=== PATIENT | female | born 1945 | race Caucasian/White ===

== ENCOUNTER → 2017-10-06 16:09 | Outpatient (CLI) | payer MEDICARE, OTHER, SELFPAY ==
--- NOTE | 2017-10-06 16:18 | CT_ITS ---
CT of the left wrist INDICATION: Trauma TECHNIQUE: CT of the left wrist was performed in the axial plane without contrast followed by sagittal and coronal reconstructions. Radiographic technique was optimized to limit patient radiation dose DLP was 665.09 FINDINGS There is acute impacted comminuted intra-articular fracture of the distal radius with overlapping and mild separation of fracture fragments. There is also a transversely oriented fracture through the ulnar styloid with mild separation of fracture fragments. IMPRESSION:: Acute fractures of the distal radius and ulna styloid. Electronically Signed: Parviz Cramer MD at 17:27 EDT , Service support , CT/Extremity Upper without Contra
--- NOTE | 2017-10-06 16:24 | CT_ITS ---
CT of the right wrist INDICATION: Trauma TECHNIQUE: CT of the right wrist was performed in the axial plane without contrast followed by sagittal and coronal reconstructions. Radiographic technique was optimized to limit patient radiation dose. DLP was 554.46 FINDINGS: There is acute impacted comminuted intra-articular fracture of the distal radius with mild overlapping and separation of the fracture fragments without significant angulation.. There is also a transversely oriented fracture through the ulnar styloid process with mild separation of fracture fragments. CT/Extremity Upper without Contra IMPRESSION: Acute fractures of the distal radius and ulna styloid process Electronically Signed: Parviz Cramer MD at 17:09 EDT , Service support ,
== END ==
PROVIDERS: Family Provider Internal Medicine; PCP Internal Medicine; Visit Provider Orthopaedic Surgery
DX: M25.532 Pain in left wrist (principal)
CPT/HCPCS: 73200

== ENCOUNTER 2017-12-21 12:30 | Outpatient (RCR) | payer MEDICARE, OTHER, SELFPAY ==
--- NOTE | 2017-11-19 14:04 | HP.OTEVAL_ITS ---
Patient's Visit Information GWENDOLYN MARQUES is a 71 year old F, referred to Occupational Therapy by JUANA AMBROSE, with a diagnosis of bilateral radial/ulnar fx with ORIF. Date of Evaluation: 11/03/17 Occupational Therapist: Shellie Sinclair, CRISTÓBALR/Jade, CHT - Subjective Subjective: Pt had a fall on October 01, 2017. She fx bilateral distal radius and ulnar. Pt underwent bilateral ORIF on October 07, 2017. Pt arrives to session with Dr. west to allow left UE okay for weightbearing 5 pounds of less- cockup brace only for comfort. Right UE full range of motion of wrist and finger STRICT nonweightbearing -cock up brace to be warn at all times except when performong ROM exercises - Pain right wrist 1 Pain Intensity Range: 2, 5 left wrist 1 Pain Intensity Range: 2, 5 - ROM Forearm: right sup 60 left unable Wrist: Right 25/35 left 0/10 ROM Comments: Right composite fist. Left 1.5 away from composite fist. - Strength Strength Comments: NT at this time - Sensation Sensation Comments: denies - Hand/Wrist Evaluation Total Score of Pain & Functional Sections: 83 - Goals Goal:: 6 weeks following release for strengthening pt will demo a functional day care assistant strength of 35# or greater to return pt to PLOF Goal:: pt will demo a increase in right wrsit ROM by 30 degrees or greater to return to PLOF with BADLS by d/c. pt will demo the ability to form a composite fist with left hand to use with BADLs and IADLS by D/C Goal:: pt will report pain no greater than 2/10 with use of BUE with BADLS and IADLS by D/C Goal:: pt will demo understanding of scar mtg by end of 1st session to decrease scar adhesions to tendon - Rehabilitation General Assessment: pt demo with limited right wrist functioal ROM -limited left digital ROM limiting pts functional performance of BADLs and IADLS. Dr. west to allow left UE okay for weightbearing 5 pounds of less- cock up brace only for comfort. Right UE full range of motion of wrist and finger STRICT nonweightbearing -cockup brace to be warn at all times except when performong ROM exercises. PT would benefit from skilled OT services 1-2x week for 8 weeks to return pt to PLOF Rehabilitation Potential: Good - Anticipated Interventions Anticipated Interventions: A/AAROM/PROM, Strengthening, Scar Care, Triggerpoint Release, Modalities, Orthoses, Fine Motor Coord/Miguel Angel - Visit Plan Frequency: 2-3x /Week Duration: 2 Months TEXT: Thank you for the opportunity to evaluate your patient. For Medicare and Medicare HMO plans, please review the plan of care and approve it. It will need to be FAXED BACK to us at [phone] for Medicare purposes. Please let me know if there are questions or concerns regarding this plan of care. Physician Signature: Date:
--- NOTE | 2017-12-21 12:58 | HP.OTDCSUM_ITS ---
HP - OT D/C Summary It has been my pleasure to treat GWENDOLYN MARQUES under orders from JUANA AMBROSE, for the diagnosis of bilateral radial/ulnar fx with ORIF for a total of 7 visit(s). Please see the following information for a summary of their discharge status. 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 right lateral pinch 3#. right tripod pinch 2#. right wrist ROM 55/30 - Goals Patient Goals: Regain Mobility, Regain Strength, Decrease Pain, Improve Fine Motor Skills, Use Hand/Wrist/Arm Normally Again Goal:: [address] campbell for strengthening pt will demo a functional customs broker strength of 35# or greater to return pt to PLOF Goal:: pt will demo a increase in right wrsit ROM by 30 degrees or greater to return to PLOF with BADLS by d/c. pt will demo the ability to form a composite fist with left hand to use with BADLs and IADLS by D/C Goal:: pt will report pain no greater than 2/10 with use of BUE with BADLS and IADLS by D/C Goal:: pt will demo understanding of scar mtg by end of 1st session to decrease scar adhesions to tendon - Plan Plan: D/C with HEP - D/C Information Discharge Comments: PT has been see for 7 OT visits following a right ORIF and left plate. pts right wrist has progressed well with her ROM and strength. Pt reports she is PREETI with use of bilateral hand/UE for BADLs and IADLS. pt states she is able to perform well with min. pain. pt is to cont with her PRE to increase her right functional strength. Pt is ready fr left plate to be removed and will have this done in Dec. pt agrees with HEP until she has plate removed out of left. Pt d/c at this time with HEP If there are questions or concerns regarding this patient's occupational therapy , please fell free to call me at [phone]. Thank you for the referral of this patient. Sincerely, Shellie Sinclair, OTR/L, CHT
== END 2017-12-21 19:00 | disposition home or self-care (01) ==
LOC: OT 12:30
PROVIDERS: Family Provider Internal Medicine; PCP Internal Medicine
DX: S52.501D Unspecified fracture of the lower end of right radius, subsequent encounter for closed fracture with routine healing (principal); S52.601D Unspecified fracture of lower end of right ulna, subsequent encounter for closed fracture with routine healing; S52.502D Unspecified fracture of the lower end of left radius, subsequent encounter for closed fracture with routine healing; S52.602D Unspecified fracture of lower end of left ulna, subsequent encounter for closed fracture with routine healing
CPT/HCPCS: 97110; 97140; 97166; 97168; 97530

== ENCOUNTER 2018-02-19 10:30 | Outpatient (RCR) | payer MEDICARE, OTHER, SELFPAY ==
--- NOTE | 2018-02-10 09:03 | HP.OTEVAL_ITS ---
Patient's Visit Information GWENDOLYN MARQUES is a 72 year old F, referred to Occupational Therapy by DAVID PAUL, with a diagnosis of L hand fx, removal of plate in L wrist/hand. Date of Evaluation: Occupational Therapist: Shellie Sinclair, CRISTÓBALR/Jade, CHT - Subjective Subjective: Pt. arrives after removal of plate in L UE wrist/hand area. Pt. had a fall on September and fx bilateral distal radius and ulna. Pt. underwent bilateral ORIF on October 07, 2017. Pt. L Plate was removed on 01/13/2018. Pt. reported that the removal of the plate was very painful d/t scar tissue forming around the plate. - Pain L wrist 3 Pain Intensity Range: 3 - ROM Wrist: 20/30 L, 20/30 R, hx of R wrist fx ROM Comments: RD 13 degrees L, 13 degrees. UD 15 degrees L, 20 degrees. patient demo ability to make a composite fist and oppose all fingers with thumb, pt. demo ability to supinate and pronate with full ROM - Strength Under Cutting Machine Operator: 7# L and 25# in R Lateral Pinch: 1# in L and 4# in R Tripod Pinch: 3# in R and 1# in L Strength Comments: no pain during the strength tests - Nine Hole Peg Right: 19 sec. Left: 23 sec. - In-Hand Manipulation Finger to Palm Translation: Normal - Left Palm to Finger Translation: Normal - Left Comments: no pain - DASH-Disabilities of Arm, Shoulder& Hand DASH Sum: 38 - Hand/Wrist Evaluation Total Score of Pain & Functional Sections: 3 - Goals Goal:: Patient will increase overall revenue settlements administrator strength by 10 lbs. in L UE hand by completing strengthening exercises and stretches in order to complete functional tasks. Goal:: Patient will increase ROM of flexion by 15 degrees by completing strengthening and stretching exercises in order to complete BADL's and IADL's. Goal:: Patient will report overall decrease in pain in L UE hand in order to complete BADL's and IADL's with greater I. Goal:: Patient will improve lateral and tripod grasps by 3 lbs. by comlething strengthening and stretching exercises in order to complete BADL's and IADL's. - Rehabilitation General Assessment: Patient presents with L hand fx, removal of plate in L wrist/hand causing patient to have decreased strength and functional ROM of L UE forearm/wrist area. PB was provided to patient today to warm up mm prior to completing ROM exercises with pt. to increase ROM. Patient would benefit from OT services 1 x/ week for 3 weeks. Patient will recieve OT interventions like strengthening, ROM, and MT. Rehabilitation Potential: Good - Anticipated Interventions Anticipated Interventions: A/AAROM/PROM, Strengthening, Triggerpoint Release, Modalities - Visit Plan Frequency: 1x/Week Duration: 3 Weeks TEXT: Thank you for the opportunity to evaluate your patient. For Medicare and Medicare HMO plans, please review the plan of care and approve it. It will need to be FAXED BACK to us at [phone] for Medicare purposes. Please let me know if there are questions or concerns regarding this plan of care. Physician Si gnature: Date:
--- NOTE | 2018-02-22 10:13 | HP.OTDCSUM ---
HP - OT D/C Summary It has been my pleasure to treat GWENDOLYN MARQUES under orders from DAVID PAUL, for the diagnosis of L hand fx, removal of plate in L wrist/hand for a total of 2 visit(s). Please see the following information for a summary of their discharge status. - Objective Objective/Function: maintenance supervisor mechanical strength L 15 # and R 25 #. lateral pinch R 8 # and 7 # on L. tripod on R 9# and 6# on L. pt. has demo improvement with ROM and strength and reports that she is HI with BADL's and IADL's. Pt. reports no further concerns at this time. OT educated pt. about HEP to further increase strength and ROM to follow at home. OT has no concerns with pt. follow through at this time. - Goals Patient Goals: Regain Strength, Decrease Pain, Use Hand/Wrist/Arm Normally Again, Increase ROM, Be More Independent in ADLS Goal:: Patient will increase overall maintenance supervisor mechanical strength by 10 lbs. in L UE hand by completing strengthening exercises and stretches in order to complete functional tasks. Goal:: Patient will increase ROM of flexion by 15 degrees by completing strengthening and stretching exercises in order to complete BADL's and IADL's. Goal:: Patient will report overall decrease in pain in L UE hand in order to complete BADL's and IADL's with greater I. Goal:: Patient will improve lateral and tripod grasps by 3 lbs. by comlething strengthening and stretching exercises in order to complete BADL's and IADL's. - Plan Plan: D/C pt with HEP - D/C Information Discharge Comments: Pt was seen following plate removal of left wrist- pt was given HEP of ROM - today she returns with increased ROM- but states she is as ind. as she can be with her BADLS and IADLS. Pt feels she can cont. with her HEP and is ready for D/C. Therapist reviewed pts HEP and pt demo good understanding. At this time pt D/C with HEP- pt to call therapist with any questions or concerns. If there are questions or concerns regarding this patient's occupational therapy, please fell free to call me at [phone]. Thank you for the referral of this patient. Sincerely, Shellie Sinclair, OTR/L, CHT
--- NOTE | 2018-02-22 10:17 | HP.OTDCSUM_ITS ---
HP - OT D/C Summary It has been my pleasure to treat GWENDOLYN MARQUES under orders from DAVID PAUL, for the diagnosis of L hand fx, removal of plate in L wrist/hand for a total of 2 visit(s). Please see the following information for a summary of their discharge status. 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 lateral pinch R 8 # and 7 # on L. tripod on R 9# and 6# on L. pt. has demo improvement with ROM and strength and reports that she is TN with BADL's and IADL's. Pt. reports no further concerns at this time. OT educated pt. about HEP to further increase strength and ROM to follow at home. OT has no concerns with pt. follow through at this time. - Goals Patient Goals: Regain Strength, Decrease Pain, Use Hand/Wrist/Arm Normally Again, Increase ROM, Be More Independent in ADLS Goal:: Patient will increase overall aircraft power plant assembler strength by 10 lbs. in L UE hand by completing strengthening exercises and stretches in order to complete functional tasks. Goal:: Patient will increase ROM of flexion by 15 degrees by completing strengthening and stretching exercises in order to complete BADL's and IADL's. Goal:: Patient will report overall decrease in pain in L UE hand in order to complete BADL's and IADL's with greater I. Goal:: Patient will improve lateral and tripod grasps by 3 lbs. by comlething strengthening and stretching exercises in order to complete BADL's and IADL's. - Plan Plan: D/C pt with HEP - D/C Information Discharge Comments: Pt was seen following plate removal of left wrist- pt was given HEP of ROM - today she returns with increased ROM- but states she is as ind. as she can be with her BADLS and IADLS. Pt feels she can cont. with her HEP and is ready for D/C. Therapist reviewed pts HEP and pt demo good understanding. At this time pt D/C with HEP- pt to call therapist with any questions or concerns. If there are questions or concerns regarding this patient's occupational therapy, please fell free to call me at [phone]. Thank you for the referral of this patient. Sincerely, Shellie Sinclair, OTR/L, CHT
== END 2018-02-19 19:00 | disposition home or self-care (01) ==
LOC: OT 10:30
PROVIDERS: Family Provider Internal Medicine; PCP Internal Medicine
DX: S52.502D Unspecified fracture of the lower end of left radius, subsequent encounter for closed fracture with routine healing (principal); S52.602D Unspecified fracture of lower end of left ulna, subsequent encounter for closed fracture with routine healing; Z96.9 Presence of functional implant, unspecified; Z98.890 Other specified postprocedural states
CPT/HCPCS: 97110; 97140; 97166

== ENCOUNTER 2018-12-08 10:38 | Observation (INO) | payer MEDICARE, OTHER, SELFPAY ==
[2018-12-08] VITALS (14 sets, daily range): BP systolic 133–199; BP diastolic 58–100; PULSE 55–91; RESP 12–20; TEMP 36.4–37.1; O2SAT 96–99; BMI 26.2
--- NOTE | 2018-12-08 10:49 | CT_ITS ---
STUDY: CT BRAIN WITHOUT CONTRAST REASON FOR EXAM: Female, 72 years old. Left-sided facial numbness and headaches. RADIATION DOSAGE (If Supplied By Facility): CTDIvol = ( 44.99 ) mGy, DLP = ( 745.49 ) mGycm TECHNIQUE: Transaxial CT imaging of the brain was performed without administration of intravenous contrast material. Individualized dose optimization techniques were used for this CT. COMPARISON: Comparison is made with prior study dated January 08, 2012. FINDINGS: Normal soft tissue structures. Normal calvarium. There is mild cerebral atrophy with widening of the extra-axial spaces and ventricular dilatation. Normal white matter tracts of the cerebral hemispheres. There are small punctate calcifications of the basal ganglia which are seen in the aging brain as a normal variant. Normal brainstem. Normal cerebellum. There is no intracranial hemorrhage. There are no findings of an acute ischemic infarction. Normal visualized paranasal sinuses. CT/Brain/Head without Contrast IMPRESSION: Chronic involutional changes of the brain. Electronically Signed: Ruddy Gaspar, at 13:01 EDT , Service support ,
--- NOTE | 2018-12-08 10:49 | EKG12_ITS ---
Test Reason : Blood Pressure : / mmHG Vent. Rate : 069 BPM Atrial Rate : 069 BPM P-R Int : 144 ms QRS Dur : 140 ms QT Int : 438 ms P-R-T Axes : 051 022 008 degrees QTc Int : 469 ms Normal sinus rhythm Right bundle branch block Abnormal ECG Confirmed by MEGGAN BURLESON ([id number]), index editor JENNIFER POLK ([id number]) on 12/09/2018 2:22:18 PM Referred By: NITESH/JOSIANE Confirmed By:MEGGAN BURLESON
[2018-12-08] MEDS: 0.9% Normal Saline 1,000 ML 999 ML IV (11:06)
[2018-12-08 11:09] LABS: Absolute Lymphocyte Count 1.39 X10^3/uL (0.83-4.51); Absolute Neutrophil Count 2.8 X10^3/uL (2.0-7.7); Basophil# 0.03 X10^3/uL; Basophil% 0.6 % (0-1); Eosinophil# 0.16 X10^3/uL; Eosinophils% 3.2 % (0-5); Hematocrit 39.6 % (37-47); Hemoglobin 13.3 g/dL (12.0-15.0); Lymphocyte # 1.39 X10^3/ul (4.0); Lymphocyte % 27.7 % (19-41); Mean Corp Hgb Conc 33.6 g/dL (32-36); Mean Corpuscular Hgb 29.1 pg (27.0-32.0); Mean Corpuscular Volume 86.7 fL (81-99); Mean Platelet Vol. 10.2 fl (6.2-12.0); Monocyte# 0.57 X10^3/uL; Monocyte% 11.4 % (0-10); NRBC Flagged by Analyzer 0 % (0-5); Neutrophil % 55.7 % (47-70); Platelet Count 235 K/mm3 (150-450); RBC Distribution Width CV 12.6 % (11.6-14.6); RBC Distribution Width SD 39.5 fl (35.1-43.9); Red Blood Count 4.57 M/mm3 (4.2-5.4)
[2018-12-08 11:16] LABS: Prothrombin Time (Protime)PT. 12.8 SECONDS (11.7-14.9)
[2018-12-08 11:26] LABS: BUN 18 mg/dL (7-18); BUN/Creat Ratio 20.2 RATIO (10-20); Creatinine, Serum 0.89 mg/dL (0.55-1.02); EST Glomerular Filtration Rate 66 mL/min (>60); Est Glom Filt Rate - Afr Amer 80 mL/min (>60); Estimated Creatinine Clearance 44.38 ml/min; Glucose 130 mg/dL (74-106)
[2018-12-08 11:27] LABS: Anion Gap 4 (5-15); Calcium,Total 9.1 mg/dL (8.5-10.1); Chloride 110 mmol/L (98-107); Potassium 3.9 mmol/L (3.5-5.1); Sodium Level 142 mmol/L (136-145)
--- NOTE | 2018-12-08 11:35 | RAD_ITS ---
STUDY: X-RAY CHEST REASON FOR EXAM: Female, 72 years old. Headache. Stroke like symptoms. TECHNIQUE: Single AP portable view of the chest. COMPARISON: None. FINDINGS: EKG electrodes are seen. The lungs are clear and expanded. There is no demonstrated pleural abnormality. Normal size heart. Normal mediastinum and dariana. Normal visualized pulmonary arteries. There is atherosclerotic tortuosity of the aortic arch and descending thoracic aorta. Normal visualized thoracic spine. Normal visualized ribs, clavicles, and shoulders. There is no demonstrated abnormality of the visualized soft tissue structures of the upper abdomen. RAD/Chest 1 View IMPRESSION: No acute abnormality is seen. Electronically Signed: Ruddy Gaspar, at 12:13 EDT , Service support ,
--- NOTE | 2018-12-08 13:50 | ED.VISSUMM ---
- ER Visit Summary Date of Service: 12/08/18 Chief Complaint: Cheek tingling History of Present Illness: The patient is a 72 F with left cheek tingling. Symptoms started this morning when she woke up around 8 AM. She never had this before. She also said that both of her eyes were blurry and all perkins. She denies visual cuts. She has been dealing with a headache over the past week. It has been frontal, but was worse today. She also reports that her blood sugars have been high recently, as high as 250. She is not not diabetic, but has a family history of diabetes. History of hyperlipidemia. Physical Examination: Afebrile and vital signs unremarkable except for hypertension. HEENT exam unremarkable. Neck nontender with good range of motion. Heart regular. Lungs clear. Skin appears normal. Cranial nerves grossly intact and normal strength. She does report decreased sensation to her left cheek region. Cerebellar testing normal. NIH stroke scale is 1. Test Results: EKG showed sinus rhythm at a rate of 69 with a right bundle branch block pattern. CBC unremarkable. BMP showed a glucose of 130. Coags and troponin normal. Chest x-ray and CT brain showed chronic changes. Emergency Department Course and Treatment: Patient presents with headache and neurologic symptoms. I was initially considered that she may be hyperglycemic. She was hypertensive. She was treated with labetalol. Repeat blood pressure was 159/70. She was treated with IV fluids. Her glucose was only 130. Her headache improved. Vision improved. She continued to have left cheek tingling. Given her focal neurologic symptoms, age, risk factors, hospitalist was contacted for admission for further evaluation. Treatment Plan: As above Disposition: Admission Impression: 1. Left facial paresthesias 2. Headache 3. Hypertension 4. Hyperglycemia This note was generated with [employer] software. It may contain incorrect words, spelling, and punctuation that were not noted in review of the chart prior to signing ED Disposition - Plan for ED Patient: Referrals: Maggie Renee MD [Primary Care Provider] -
--- NOTE | 2018-12-08 14:04 | HP.PCM_ITS ---
Problem List (1) CVA (cerebral vascular accident) Status: Acute (2) Migraine Status: Chronic (3) Gastroesophageal reflux disease Status: Chronic (4) Hypercholesterolemia Status: Chronic History of Present Illness Date of Admission: 12/08/18 The patient is a 72 year old F with pmhx migraine, GERD, Hiatal hernia, HLD, and osteopenia, who presents to the ER with c/o frontal headache and left facial tingling. This began this AM. She notes that she woke up with these symptoms. The headache has since resolved. It was across her forehead and severe. She also has tingling localized to the left cheek and chin. She feels that her vision is somewhat blurry in both eyes. She has no focal weakness, no slurred speech, no facial droop, no swallowing difficulty, and no peripheral numbness/tingling. She came to the ER and has a severely elevated BP with systolic in the 190s. She is concerned for stroke. She previously had an episode 2 years prior where she had slurred speech and aphasia along with headache and was told that it was a migraine, there is some concern as to whether this was a migraine or a stroke as she has never had a migraine before that or since. She also is worried she has diabetes. Last week she checked her blood sugar and it was in the 200s. Today it is 130 on BMP. [] Past Medical History Past Medical History (Chronic Problems): Chronic Problems Migraine (Chronic) Hypercholesterolemia (Chronic) Gastroesophageal reflux disease (Chronic) Allergies Latex, Natural Rubber Allergy (Verified 12/08/18 10:53) Hives Home Medications: Ambulatory Orders Medication Instructions Recorded Ascorbic Acid 500 mg PO DAILY 12/08/18 Calcium Carbonate [Calcium] 600 mg PO DAILY 12/08/18 Cholecalciferol (Vitamin D3) 1,000 unit PO DAILY 12/08/18 [Vitamin D3] Pantoprazole Sodium [Protonix] 40 mg PO DAILY 12/08/18 Pravastatin [Pravachol] 20 mg PO DAILY 12/08/18 Surgical History: - - BL wrist surgery Psychiatric History: No pertinent psych 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 Lives: Spouse/ Significant Other Smoking Status: Never smoker Tobacco Use: Non-smoker Alcohol: Rare Drugs: None - *Family History Sibling History Items: Diabetes Maternal History Items: Cancer - lung Paternal History Items: Heart Disease Review of Systems Constitutional: Denies: Chills, Fever, Weight Change HEENT: Denies: Head Aches, Sinus Congestion, Sinus Drainage Cardiovascular: Denies: Chest Pain, Palpitations Respiratory: Denies: Cough, Shortness of breath at rest, Sputum production Gastrointestinal: Denies: Abdominal Pain, Nausea, Vomiting Genitourinary: Denies: Dysuria Musculoskeletal: Denies: Joint Pain, Joint Tenderness Skin: Denies: Rash, Wounds Neurological: Reports: Headaches, Numbness, Tingling. Denies: Change in Speech, Slurred speech, Confusion, Difficulty swallowing, Focal weakness, Seizures Psychiatric: Denies: Anxiety, Depression, Homicidal Ideations, Suicidal Ideations Hematologic/ Lymphatic: Denies: Easy Bruising, Easy Bleeding VTE Information - Inpt Only VTE Present on Admission: No VTE Mechan Device Prophylaxis: None VTE Pharm Prophylaxis ordered?: Yes Patient Problems: Active and Suspected Problems CVA (cerebral vascular accident) (Acute) - Physical Exam General: Alert, Oriented x3, Cooperative HEENT: Atraumatic, PERRLA, EOMI, Normocephalic Neck: Supple, No JVD, Negative Carotid Bruits Lungs: Clear to auscultation, Normal air movement Cardiovascular: Regular rate, No murmurs Abdomen: Bowel Sounds Present, Soft, Non Tender Extremities: No edema, Capillary Refill Less than 3 Seconds Skin: No rashes, No breakdown Musculoskeletal: No Tenderness to Palpation of Joints or Extremities Neurological: Cranial nerves II-XII grossly intact, - - neg pronator drift, neg graphasthesia, sensation intact upper/lower ext, good strength = and BL upper and lower ext Psych/Mental Status: Normal Affect, Appropriate, Alert and oriented to time, place, person, mood and affect Vital Signs Temp Pulse Resp BP Pulse Ox 98.5 F 59 L 20 H 159/70 H 97 12/08/18 10:38 12/08/18 13:01 12/08/18 13:01 12/08/18 13:01 12/08/18 13:01 Oxygen Flow Rate (L/min) 2 Oxygen Delivery Method Room Air Weight: 139 lb Body Mass Index (BMI) 26.2 Laboratory Tests Past 24 Hrs 12/08/18 12/08/18 12/08/18 10:55 10:55 10:55 WBC 5.0 RBC 4.57 Hgb 13.3 Hct 39.6 MCV 86.7 MCH 29.1 MCHC 33.6 RDW Std Deviation 39.5 RDW Coeff of Jorge 12.6 Plt Count 235 MPV 10.2 Immature Gran % (Auto) 1.400 H Neut % (Auto) 55.7 Lymph % (Auto) 27.7 [place] % (Auto) 11.4 H Eos % (Auto) 3.2 Baso % (Auto) 0.6 Absolute Neuts (auto) 2.8 Absolute Lymphs (auto) 1.39 Nucleated RBC % 0 PT 12.8 INR 1.0 APTT 26.0 Sodium 142 Potassium 3.9 Chloride 110 H Carbon Dioxide 28.0 Anion Gap 4 L BUN 18 Creatinine 0.89 Estim Creat Clear Calc 44.38 Est GFR (MDRD) Af Amer 80 Est GFR (MDRD) Non-Af 66 BUN/Creatinine Ratio 20.2 H Glucose 130 H Calcium 9.1 Troponin I < 0.015 Assessment/Plan All Active Problems CVA (cerebral vascular accident) (Acute) 1. Left facial numbess and BL frontal ROSE - concern for CVA - CT brain negative. Woke up with symptoms, ROSE resolved, left facial numbness/tingling still there. left cheek and chin, spares forehead. Neuro exam benign. BP is severely elevated 190s. Also concerning is that the patient 2 years prior had expressive aphasia and slurred speech along with headache and was told she had a migraine despite n o prior hx or recurrent of any migraines. Obtain MRI brain MRA head and neck, echo, and consult neurology. Check TSH and B12. Maximize statin and start aspirin. PTOTST evals. Check A1C. 2. Hyperglycemia - checked at home and had glucose >200, no hx diabetes, strong family hx. Check A1C. SSI. 3. HTN - severely elevated - ROSE may also be related to this. Permissive htn however should decrease somewhat from 190's. 4. Hx GERD/Hiatal hernia - PPI 5. Osteopenia - on Ca/VitD. 6. HLD - on statin. DVT ppx: lovenox This patient was seen by Robi Silvestre PA-C under the supervision of Dr. Howard.
--- NOTE | 2018-12-08 14:31 | CT_ITS ---
STUDY: CTA HEAD AND NECK WITH CONTRAST REASON FOR EXAM: Female, 72 years old. Headache, blurry vision RADIATION DOSAGE (If Supplied By Facility): CTDIvol = ( 19.32 ) mGy, DLP = ( 635.55 ) mGycm TECHNIQUE: CT angiography was performed with a multi-detector CT scanner. Data acquisition was obtained from the skull base through the vertex following intravenous administration of 100 IV Isovue 370. MIP images were reconstructed from the axial data set. Post-processing of the angiographic images was performed, with multiplanar reformation and 3D reconstruction. Individualized dose optimization techniques were used for this CT. COMPARISON: CT earlier today FINDINGS: Normal bilateral petrous carotid arteries. Normal right cavernous carotid artery with a normal supraclinoid bifurcation. Normal left cavernous carotid artery with a normal supraclinoid bifurcation. There is hypoplastic development of the right A1 segment of the anterior cerebral arteries with an atretic but intact artery. Normal left A1 segments of the anterior cerebral artery. Normal intact anterior communicating artery (ACOM). Normal bilateral A2 segments of the anterior cerebral arteries. Normal right M1 and M2 segments of the middle cerebral arteries, with a normal M1 bifurcation. Normal left M1 and M2 segments of the middle cerebral arteries, with a normal M1 bifurcation. Normal right posterior communicating artery (PCOM). There is non-visualization of the left posterior communicating artery (PCOM). Focal calcified plaque within the distal right vertebral artery producing a mild (50%) stenosis. Oormal basilar artery with a normal basilar bifurcation. The visualized bilateral superior cerebellar (SCA) arteries are normal. Normal bilateral P1, P2 and visualized P3 segments of the posterior cerebral arteries. There is no demonstrated aneurysm of the [place]. There is no demonstrated abnormality of the visualized brain. AORTIC ARCH: There is a bovine origin of the great vessels arising from the aortic arch with a common origin of the brachiocephalic and left common carotid artery. Normal origin of the left subclavian artery. Normal origins of the brachiocephalic, left common carotid, and left subclavian arteries. RIGHT CAROTID ARTERIES: Normal right common carotid artery (CCA). There is mild atherosclerotic plaque formation with minimal narrowing of the right carotid bulb. There is mild atherosclerotic plaque formation of the origin of the right internal carotid artery with less than 50% cross sectional diameter stenosis. Normal visualized cervical portion of the right internal carotid artery. Normal origin of the right external carotid artery (ECA). LEFT CAROTID ARTERIES: Normal left common carotid artery (CCA). Normal left common carotid bulb. Normal origin of the left internal carotid (ICA) artery without a hemodynamically significant stenosis. Normal visualized cervical portion of the left internal carotid artery. Normal origin of the left external carotid artery (ECA). VERTEBRAL ARTERIES: Normal bilateral vertebral arteries. CT/CTA Head AND Neck W/ Contrast IMPRESSION: 1. Bovine arch. 2. Mild (20%) stenosis right carotid stenosis. 3. No left carotid stenosis. 4. Patent vertebral arteries bilaterally. Electronically Signed: Delta Sheffield MD at 17:02 EDT Tel , Service support ,
--- NOTE | 2018-12-08 14:31 | MRI_ITS ---
STUDY: MRI BRAIN WITHOUT CONTRAST REASON FOR EXAM: Female, 72 years old. CVA TECHNIQUE: Standardized multiplanar fat and water weighted pulse sequences were obtained. COMPARISON: CT of the brain on December 08, 2018 FINDINGS: Normal size of the ventricles and extra-axial spaces for the patient's age. Mild periventricular white matter ischemic changes without evidence for acute infarct. Normal bilateral basal ganglia. Normal thalami. There is no extra-axial fluid accumulation. Normal flow voids within the major intracranial circulation suggesting patency by spin echo criteria. Normal sella turcica, pituitary gland, infundibular stalk, optic chiasm and hypothalamus. Normal tectal plate and pineal gland. Normal midbrain, meenakshi and medulla. Normal cerebellum. Normal basal cisterns. Normal bilateral temporal bones. Normal bilateral internal auditory canals. Postsurgical changes of the orbits.. Normal visualized paranasal sinuses. Normal calvarium and skull base. Normal visualized soft tissue structures. Normal visualized upper cervical spine. MRI/Brain without Contrast IMPRESSION: Mild periventricular white matter ischemic change without evidence for acute infarct. Electronically Signed: Parviz Cramer MD at 19:47 EDT , Service support ,
--- NOTE | 2018-12-08 14:37 | ECHOCS_ITS ---
Reason For Study: TIA/CVA Procedure This was a 2D Doppler, Color Flow transthoracic echocardiogram. The study was technically difficult. Due to breast implants. Contrast injection was performed. Exam performed portable in patient room. Left Ventricle Normal size and thickness. The estimated ejection fraction is 60 %. No evidence for diastolic dysfunction. No regional wall motion abnormalities noted. Right Ventricle Normal RV size. Normal systolic function. Atria Normal left atrium. Normal right atrium. No doppler evidence for ASD. Mitral Valve There is no mitral valve stenosis. No mitral valve insufficiency. Tricuspid Valve There is no tricuspid stenosis. Trivial tricuspid valve insufficiency. Pulmonary artery systolic pressure is 30 mmHg. Aortic Valve Trisinus/trileaflet aortic valve. There is no aortic stenosis. No aortic valve insufficiency. Pulmonic Valve There is no pulmonic valvular stenosis. No pulmonic valve insufficiency. Great Vessels Normal aortic root. Pericardium/Pleural No pericardial effusion. Medication Diluted definity 4.0ml given slow IV push to enhance endocardial definition. MMode/2D Measurements & Calculations LVIDd: 4.6 cm IVSd: 0.82 cm Ao root diam: 2.9 cm LVIDs: 3.0 cm LVPWd: 0.90 cm RVDd: 2.7 cm FS: 34.7 % LAV(MOD-bp): 38.7 ml LA A4 area: 15.8 cm2 LA dimension(2D): 3.3 cm LAV(MOD-bp) Indexed: 23.9 ml/m2 LAV(MOD-sp2): 35.7 ml LAV(MOD-sp4): 42.3 ml Time Measurements MV dec time: 0.12 sec Doppler Measurements & Calculations MV E max pete: 53.5 cm/sec Lat Peak E' Pete: 8.8 cm/sec Med Peak E' Pete: 7.8 cm/sec MV A max pete: 84.0 cm/sec E/E' lat: 6.1 E/E' med: 6.8 MV E/A: 0.64 Ao V2 max: 113.8 cm/sec LV V1 max: 81.1 cm/sec PA V2 max: 102.8 cm/sec Ao max P.2 mmHg LV V1 max P.6 mmHg TR max pete: 256.6 cm/sec TR max P.4 mmHg Interpretation Summary The study was technically difficult. The estimated ejection fraction is 60 %. No evidence for diastolic dysfunction. Pulmonary artery systolic pressure is 30 mmHg. No doppler evidence for ASD. The study was technically difficult. Ordering Physician: Trang Howard Referring Physician: Maggie Renee Performed By: Claire Harris, [place], RVT
[2018-12-08 14:59] LABS: Hemoglobin A1c 6.7 % (4.2-6.3)
[2018-12-08 15:01] LABS: Thyroid Stim Hormone (TSH) 3.21 uIU/mL (0.358-3.74)
[2018-12-08 15:07] LABS: Vitamin B12 1063 pg/mL (211-911)
[2018-12-08] MEDS: 0.9% Normal Saline 1,000 ML 100 ML IV (15:14)
--- NOTE | 2018-12-08 15:38 | PCM.CONS.GEN ---
Problem List (1) Headache Status: Acute (2) Tingling Status: Acute Reason for Consult Date of Consultation: 12/08/18 Reason for Consultation: Headache, left facial tingling History of Present Illness: The patient is a 72 year old F with PMH HLD, GERD admitted with headache and left facial tingling. Per patient she started having frontal headache on and off for about a week, intensity of about 7/10, without any photophobia or phonophobia or nausea, associated with visual blurring, but denies any vision loss, temporal tenderness or jaw claudication. Per patient since this morning 12/08/2018 she had tingling in the left cheek following which she went to the urgent care and was sent to the ED for further evaluation. Systolic blood pressure on admission was around [address] head done on admission did not show anything acute. At present per patient her headache is almost resolved, but continues to have tingling in the left cheek, denies any focal motor weakness, sensory loss, dizziness, speech disturbances, or facial droop. Per patient she lives with her boyfriend, denies any frequent falls, does not use cane or walker to ambulate, does drive and does not need any assistance for her ADLs. Does not aspirin at baseline. [] Past Medical History Past Medical History (Chronic Problems): Chronic Problems Migraine (Chronic) Hypercholesterolemia (Chronic) Gastroesophageal reflux disease (Chronic) Allergies Latex, Natural Rubber Allergy (Verified 12/08/18 10:53) Hives Home Medications: Ambulatory Orders Medication Instructions Recorded Ascorbic Acid 500 mg PO DAILY 12/08/18 Calcium Carbonate [Calcium] 600 mg PO DAILY 12/08/18 Cholecalciferol (Vitamin D3) 1,000 unit PO DAILY 12/08/18 [Vitamin D3] Pantoprazole Sodium [Protonix] 40 mg PO DAILY 12/08/18 Pravastatin [Pravachol] 20 mg PO DAILY 12/08/18 Surgical History: - - BL wrist surgery Psychiatric History: No pertinent psych hx 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 Lives: - - With boyfriend Smoking Status: Never smoker Tobacco Use: Non-smoker Alcohol: Rare Drugs: None - *Family History Sibling History Items: Diabetes Maternal History Items: Cancer - lung Paternal History Items: Heart Disease Review of Systems Constitutional: Reports: - - Complete ROS negative except as documented in HPI Patient Problems: Active and Suspected Problems CVA (cerebral vascular accident) (Acute) Headache (Acute) Tingling (Acute) - Physical Exam General: Alert HEENT: Normocephalic Neck: Supple Lungs: Normal air movement Cardiovascular: Normal S1, Normal S2 Abdomen: Bowel Sounds Present Extremities: No cyanosis Neurological: - - Conscious, alert, CN II through XII grossly intact, power 5 x 5 both upper and lower extremities, no sensory loss, no cerebellar signs, gait deferred, Reflexes + B/L B/S/T/K/A Psych/Mental Status: Normal Affect Vital Signs Temp Pulse Resp BP Pulse Ox 98.7 F 74 16 179/64 H 99 12/08/18 14:33 12/08/18 14:42 12/08/18 14:33 12/08/18 14:33 12/08/18 14:33 Oxygen Flow Rate (L/min) 2 Oxygen Delivery Method Room Air Weight: 62.959 kg Body Mass Index (BMI) 26.2 Laboratory Tests Past 24 Hrs 12/08/18 12/08/18 12/08/18 10:55 10:55 10:55 WBC 5.0 RBC 4.57 Hgb 13.3 Hct 39.6 MCV 86.7 MCH 29.1 MCHC 33.6 RDW Std Deviation 39.5 RDW Coeff of Jorge 12.6 Plt Count 235 MPV 10.2 Immature Gran % (Auto) 1.400 H Neut % (Auto) 55.7 Lymph % (Auto) 27.7 [place] % (Auto) 11.4 H Eos % (Auto) 3.2 Baso % (Auto) 0.6 Absolute Neuts (auto) 2.8 Absolute Lymphs (auto) 1.39 Nucleated RBC % 0 PT 12.8 INR 1.0 APTT 26.0 Sodium 142 Potassium 3.9 Chloride 110 H Carbon Dioxide 28.0 Anion Gap 4 L BUN 18 Creatinine 0.89 Estim Creat Clear Calc 44.38 Est GFR (MDRD) Af Amer 80 Est GFR (MDRD) Non-Af 66 BUN/Creatinine Ratio 20.2 H Glucose 130 H Hemoglobin A1c Calcium 9.1 Magnesium Troponin I < 0.015 Vitamin B12 TSH 12/08/18 12/08/18 12/08/18 10:55 10:55 10:55 WBC RBC Hgb Hct MCV MCH MCHC RDW Std Deviation RDW Coeff of Jorge Plt Count MPV Immature Gran % (Auto) Neut % (Auto) Lymph % (Auto) [place] % (Auto) Eos % (Auto) Baso % (Auto) Absolute Neuts (auto) Absolute Lymphs (auto) Nucleated RBC % PT INR APTT Sodium Potassium Chloride Carbon Dioxide Anion Gap BUN Creatinine Estim Creat Clear Calc Est GFR (MDRD) Af Amer Est GFR (MDRD) Non-Af BUN/Creatinine Ratio Glucose Hemoglobin A1c 6.7 H Calcium Magnesium Troponin I Vitamin B12 1063 H TSH 3.21 12/08/18 10:55 WBC RBC Hgb Hct MCV MCH MCHC RDW Std Deviation RDW Coeff of Jorge Plt Count MPV Immature Gran % (Auto) Neut % (Auto) Lymph % (Auto) [place] % (Auto) Eos % (Auto) Baso % (Auto) Absolute Neuts (auto) Absolute Lymphs (auto) Nucleated RBC % PT INR APTT Sodium Potassium Chloride Carbon Dioxide Anion Gap BUN Creatinine Estim Creat Clear Calc Est GFR (MDRD) Af Amer Est GFR (MDRD) Non-Af BUN/Creatinine Ratio Glucose Hemoglobin A1c Calcium Magnesium 2.0 Troponin I Vitamin B12 TSH Assessment/Plan All Active Problems CVA (cerebral vascular accident) (Acute) Headache (Acute) Tingling (Acute) The patient is a 72 year old F with PMH HLD, GERD admitted with headache and left facial tingling. Per patient she started having frontal headache on and off for about a week, intensity of about 7/10, without any photophobia or phonophobia or nausea, associated with visual blurring, but denies any vision loss, temporal tenderness or jaw claudication. Per patient since this morning 12/08/2018 she had tingling in the left cheek following which she went to the urgent care and was sent to the ED for further evaluation. Systolic blood pressure on admission was around [address] head done on admission did not show anything acute. At present per patient her headache is almost resolved, but continues to have tingling in the left cheek, denies any focal motor weakness, sensory loss, dizziness, speech disturbances, or facial droop. Per patient she lives with her boyfriend, denies any frequent falls, does not use cane or walker to ambulate, does drive and does not need any assistance for her ADLs. Does not aspirin at baseline. Impression Uncontrolled hypertension?hypertensive urgency Rule out stroke Plan ?On aspirin and Lipitor ?MRI brain without contrast ?CTA head/neck ?TTE, LDL, HbA1c, ESR ?Stroke risk factors discussed and stroke education provided ?If vessel imaging and MRI brain is negative then blood pressure can be gradually decreased to normal ?PT/OT ?GI/DVT prophylaxis ?Fall precautions ?Further medical management per hospitalist team ?Please call with questions if any ?Follow-up with neurology as outpatient in 4 weeks ?Thank you for allowing us to participate in patient's care and management This note was generated using [employer] dictation software. It may contain incorrect words, spellings and punctuations that were not noted in the review of the note prior to signing. [] Code Visit Inpatient E&M: 67041 Init Hosp L3
[2018-12-08 16:34] LABS: Erythrocyte Sedimentation Rate 3 mm/hr (0-30)
[2018-12-08 16:48] LABS: Hemoglobin A1c 6.6 % (4.2-6.3)
[2018-12-08] MEDS: 0.9% NaCl Peripheral Flush Adult/Peds IV (18:02)
[2018-12-08] MEDS: hydrALAZINE 20 MG/ML Vial 5 MG IV (18:02)
[2018-12-08] MEDS: Aspirin 81 MG TAB.CHEW PO (18:12)
--- NOTE | 2018-12-08 18:49 | NURSING ---
pt down to MRI at this time
[2018-12-09 01:45] VITALS: BP 143/63; PULSE 77; RESP 14; TEMP 36.7; O2SAT 98
[2018-12-09 03:00] VITALS: PULSE 63
[2018-12-09 03:36] VITALS: BMI 26.2
[2018-12-09] MEDS: 0.9% Normal Saline 1,000 ML 100 ML IV (04:24)
[2018-12-09 05:45] VITALS: BP 137/57; PULSE 60; RESP 14; TEMP 36.8; O2SAT 96
[2018-12-09 05:55] LABS: Anion Gap 8 (5-15); BUN 11 mg/dL (7-18); BUN/Creat Ratio 15.8 RATIO (10-20); Calcium,Total 8.3 mg/dL (8.5-10.1); Chloride 116 mmol/L (98-107); Cholesterol 168 mg/dL (200); EST Glomerular Filtration Rate 88 mL/min (>60); Est Glom Filt Rate - Afr Amer 107 mL/min (>60); Glucose 106 mg/dL (74-106); High Density Lipoprotein 51 mg/dL; Potassium 4.1 mmol/L (3.5-5.1); Sodium Level 146 mmol/L (136-145); Triglycerides 108 mg/dL; Very Low Density Lipoprotein 22 mg/dL (5-40)
[2018-12-09 07:00] VITALS: PULSE 70
[2018-12-09] MEDS: Pantoprazole Sodium 40 MG Tablet PO (08:56)
[2018-12-09] MEDS: Aspirin 81 MG TAB.CHEW PO (08:56)
[2018-12-09 09:04] VITALS: BP 162/81; PULSE 91; RESP 16; TEMP 36.7; O2SAT 98
--- NOTE | 2018-12-09 10:23 | PCM.DC ---
- Discharge Diagnoses Current Active Problems: Current Active and Chronic Problems Migraine (Chronic) Headache (Acute) Hypertensive urgency Elevated hemoglobin A1c You will use the following diet at home:: Calorie/Carbohydrate Controlled (specify 1200, 1400, etc) Discharge Activity: Return to Normal Activity Call your doctor if you observe: Shortness of breath, Dizziness, Fainting spells, Chest pain Additional Instructions: Check blood pressure twice daily at home, morning and night and document findings to report to PCP. Allergies/Adverse Reactions: Allergies Latex, Natural Rubber Allergy (Verified 12/08/18 10:53) Hives Medications to take at Discharge Ascorbic Acid 500 mg PO DAILY 12/08/18 Calcium Carbonate [Calcium] 600 mg PO DAILY 12/08/18 Cholecalciferol (Vitamin D3) [Vitamin D3] 1,000 unit PO DAILY 12/08/18 Pantoprazole Sodium [Protonix] 40 mg PO DAILY 12/08/18 Pravastatin [Pravachol] 20 mg PO DAILY 12/08/18 Hydrochlorothiazide [Hctz] 12.5 mg PO DAILY #30 tab 12/09/18 The following prescriptions were given: Hydrochlorothiazide [Hctz] 12.5 mg PO DAILY #30 tab Transmission Status: Pending to [id number] Primary Care Physician: Maggie Renee MD [Primary Care Provider] - Please follow up with your Primary Care Physician in: 1 Week Test Results: Test results from this visit will be discussed in further detail at your follow-up appointment, if applicable. Proposed Discharge Date: 12/09/18
--- NOTE | 2018-12-09 11:38 | PN.NEURO_ITS ---
Patient Problems: Active and Suspected Problems CVA (cerebral vascular accident) (Acute) Headache (Acute) Tingling (Acute) Subjective: No issues overnight. Case discussed with hospitalist team. Per patient her left cheek tingling has improved. Has some mild headache. MRI brain did not show any acute stroke. CTA head/neck did not show any hemodynamically significant stenosis or occlusion. ESR 3. - Physical Exam General: Alert HEENT: Normocephalic Neck: Supple Lungs: Normal air movement Cardiovascular: Normal S1, Normal S2 Abdomen: Bowel Sounds Present Extremities: No cyanosis Neurological: - - Conscious, alert, CN II through XII grossly intact, power 5 x 5 both upper and lower extremities, no sensory loss, no cerebellar signs, gait deferred, Reflexes + B/L B/S/T/K/A Psych/Mental Status: Normal Affect Vital Signs Temp Pulse Resp BP Pulse Ox 98.1 F 91 16 162/81 H 98 12/09/18 09:04 12/09/18 09:04 12/09/18 09:04 12/09/18 09:04 12/09/18 09:04 Oxygen Flow Rate (L/min) 2 Oxygen Delivery Method Room Air Weight: 62.959 kg Body Mass Index (BMI) 26.2 Intake and Output for Last 24 Hours 12/07/18 12/08/18 12/09/18 23:59 23:59 23:59 Intake Total 566 / 566 997 / 997 Balance 566 / 566 997 / 997 Laboratory Tests Past 24 Hrs 12/08/18 12/08/18 12/08/18 10:55 10:55 10:55 ESR Sodium Potassium Chloride Carbon Dioxide Anion Gap BUN Creatinine Estim Creat Clear Calc Est GFR (MDRD) Af Amer Est GFR (MDRD) Non-Af BUN/Creatinine Ratio Glucose Hemoglobin A1c 6.7 H Calcium Magnesium Triglycerides Cholesterol LDL Cholesterol VLDL Cholesterol HDL Cholesterol Vitamin B12 1063 H TSH 3.21 12/08/18 12/08/18 12/08/18 10:55 16:14 16:14 ESR 3 Sodium Potassium Chloride Carbon Dioxide Anion Gap BUN Creatinine Estim Creat Clear Calc Est GFR (MDRD) Af Amer Est GFR (MDRD) Non-Af BUN/Creatinine Ratio Glucose Hemoglobin A1c 6.6 H Calcium Magnesium 2.0 Triglycerides Cholesterol LDL Cholesterol VLDL Cholesterol HDL Cholesterol Vitamin B12 TSH 12/09/18 05:20 ESR Sodium 146 H Potassium 4.1 Chloride 116 H Carbon Dioxide 22.0 Anion Gap 8 BUN 11 Creatinine 0.70 Estim Creat Clear Calc 39.50 Est GFR (MDRD) Af Amer 107 Est GFR (MDRD) Non-Af 88 BUN/Creatinine Ratio 15.8 Glucose 106 Hemoglobin A1c Calcium 8.3 L Magnesium Triglycerides 108 Cholesterol 168 LDL Cholesterol 95 VLDL Cholesterol 22 HDL Cholesterol 51 Vitamin B12 TSH Medical Necessity - Tobacco Use Smoking Status: Never smoker Tobacco Use: Non-smoker Assessment/Plan All Active Problems CVA (cerebral vascular accident) (Acute) Headache (Acute) Tingling (Acute) The patient is a 72 year old F with PMH HLD, GERD admitted with headache and left facial tingling. Per patient she started having frontal headache on and off for about a week, intensity of about 7/10, without any photophobia or phonophobia or nausea, associated with visual blurring, but denies any vision loss, temporal tenderness or jaw claudication. Per patient since this morning 12/08/2018 she had tingling in the left cheek following which she went to the urgent care and was sent to the ED for further evaluation. Systolic blood pressure on admission was around [address] head done on admission did not show anything acute. At present per patient headache but denies any tingling in the left cheek, denies any focal motor weakness, sensory loss, dizziness, speech disturbances, or facial droop. Per patient she lives with her boyfriend, denies any frequent falls, does not use cane or walker to ambulate, does drive and does not need any assistance for her ADLs. Impression Uncontrolled hypertension?hypertensive urgency No stroke on neuroimaging, unlikely to be TIA at present. Plan ?Better control of blood pressure, goal blood pressure less than 130/80 mmHg, defer to the hospitalist team ?On statins ?MRI brain without contrast-not show any acute stroke ?CTA head/neck-no hemodynamically significant stenosis or occlusion ?TTE-pending, LDL-95, GvH5c-2.6, ESR-3 ?Stroke risk factors discussed and stroke education provided ?PT/OT ?GI/DVT prophylaxis ?Fall precautions ?Further medical management per hospitalist team ?Please call with questions if any ?Thank you for allowing us to participate in patient's care and management This note was generated using [employer] software. It may contain incorrect words, spellings and punctuations that were not noted in the review of the note prior to signing. []
--- NOTE | 2018-12-09 12:12 | PCM.DC.SUM ---
<Kenna Ulloa - Last Filed: 12/09/18 12:24> Discharge Date and Diagnosis Date of Admission: 12/08/18 Date of Discharge: 12/09/18 - Primary Discharge Diagnosis Active and Suspected Problems 1. Headache, vision changes and paresthesias-suspected secondary to hypertensive urgency versus status migrainosus-CVA ruled out 2. Hypertensive urgency 3. New diagnosis type 2 diabetes mellitus 4. Hyperlipidemia 5. GERD/history of hiatal hernia 6. Osteopenia - Secondary Discharge Diagnosis Chronic Problems Migraine (Chronic) Hypercholesterolemia (Chronic) Gastroesophageal reflux disease (Chronic) Hospital Course and Treatment Imaging Results: Diagnostic Data Brain CT 12/08/18 10:49 IMPRESSION: Chronic involutional changes of the brain. Electronically Signed: Ruddy Gaspar at 13:01 EDT , Service support , Chest X-Ray 12/08/18 11:35 IMPRESSION: No acute abnormality is seen. Electronically Signed: Ruddy Gaspar at 12:13 EDT , Service support , Brain MRI 12/08/18 14:31 IMPRESSION: Mild periventricular white matter ischemic change without evidence for acute infarct. Electronically Signed: Parviz Cramer MD at 19:47 EDT , Service support , Head/Neck CTA 12/08/18 14:31 IMPRESSION: 1. Bovine arch. 2. Mild (20%) stenosis right carotid stenosis. 3. No left carotid stenosis. 4. Patent vertebral arteries bilaterally. Electronically Signed: Delta Sheffield MD at 17:02 EDT Tel , Service support , Dr. Arango- Neurology Operations: None Procedures: 2-D Echocardiogram Summary of Care Provided: The patient is a 72 year old F admitted 12/08/2018 due to frontal headache and left facial tingling. 1. Headache, vision changes and paresthesias-suspected secondary to hypertensive urgency versus status migrainosus-CVA ruled out. Neurology consulted. MRI of brain without evidence of stroke. CTA of head and neck showed no significant stenosis or occlusion. Continue home statin regimen. Patient has mild residual headache. Otherwise symptoms have resolved. Blood pressure significantly elevated on admission, 190 systolically. Feel patient's symptoms are most likely secondary to uncontrolled hypertension. Follow-up with primary care physician in 1 week. 2. Hypertensive urgency-blood pressure improved. Discharged on hydrochlorthiazide 12.5 mg daily. Instructed patient to check blood pressure twice daily, morning and night and document findings to report to PCP at follow-up. 3. New diagnosis type 2 diabetes mellitus-hemoglobin A1c 6.7%. Discussed with patient carb controlled diet. She did not want to be on additional medication and would like to first attempt diet control. Recommend repeat hemoglobin A1c by primary care provider. 4. Hyperlipidemia-continue statin regimen. 5. GERD/history of hiatal hernia-continue home Protonix regimen. 6. Osteopenia-continue home ostium carbonate, vitamin D3 regimen. Patient seen and examined prior to discharge. Physical assessment as noted below. Patient is stable for discharge with follow up recommendations as noted above. This patient was seen by [facility] under the supervision of Dr. Selby. - Physical Exam General: Alert, Oriented x3, Cooperative HEENT: Atraumatic, PERRLA, EOMI, Normocephalic Neck: Supple, No JVD, Negative Carotid Bruits Lungs: Clear to auscultation, Normal air movement Cardiovascular: Regular rate, Regular Rhythm, Normal S1, Normal S2, No murmurs Abdomen: Bowel Sounds Present, Soft, Non Tender, Non-Distended Extremities: No clubbing, No cyanosis, No edema, Capillary Refill Less than 3 Seconds Skin: No rashes, No breakdown Musculoskeletal: No Tenderness to Palpation of Joints or Extremities Neurological: Cranial nerves II-XII grossly intact, Neuro grossly intact Psych/Mental Status: Normal Affect, Appropriate Vital Signs Temp Pulse Resp BP Pulse Ox 98.1 F 91 16 162/81 H 98 12/09/18 09:04 12/09/18 09:04 12/09/18 09:04 12/09/18 09:04 12/09/18 09:04 Oxygen Flow Rate (L/min) 2 Oxygen Delivery Method Room Air Weight: 138 lb 12.8 oz Body Mass Index (BMI) 26.2 Intake and Output for Last 24 Hours 12/07/18 12/08/18 12/09/18 23:59 23:59 23:59 Intake Total 566 / 566 997 / 997 Balance 566 / 566 997 / 997 Laboratory Tests Past 24 Hrs 12/08/18 12/08/18 12/08/18 10:55 10:55 10:55 ESR Sodium Potassium Chloride Carbon Dioxide Anion Gap BUN Creatinine Estim Creat Clear Calc Est GFR (MDRD) Af Amer Est GFR (MDRD) Non-Af BUN/Creatinine Ratio Glucose Hemoglobin A1c 6.7 H Calcium Magnesium Triglycerides Cholesterol LDL Cholesterol VLDL Cholesterol HDL Cholesterol Vitamin B12 1063 H TSH 3.21 12/08/18 12/08/18 12/08/18 10:55 16:14 16:14 ESR 3 Sodium Potassium Chloride Carbon Dioxide Anion Gap BUN Creatinine Estim Creat Clear Calc Est GFR (MDRD) Af Amer Est GFR (MDRD) Non-Af BUN/Creatinine Ratio Glucose Hemoglobin A1c 6.6 H Calcium Magnesium 2.0 Triglycerides Cholesterol LDL Cholesterol VLDL Cholesterol HDL Cholesterol Vitamin B12 TSH 12/09/18 05:20 ESR Sodium 146 H Potassium 4.1 Chloride 116 H Carbon Dioxide 22.0 Anion Gap 8 BUN 11 Creatinine 0.70 Estim Creat Clear Calc 39.50 Est GFR (MDRD) Af Amer 107 Est GFR (MDRD) Non-Af 88 BUN/Creatinine Ratio 15.8 Glucose 106 Hemoglobin A1c Calcium 8.3 L Magnesium Triglycerides 108 Cholesterol 168 LDL Cholesterol 95 VLDL Cholesterol 22 HDL Cholesterol 51 Vitamin B12 TSH Discharge Diet: Carb Control Diet Discharge Activity: Return to Normal Activity Call your doctor if you observe: Shortness of breath, Dizziness, Fainting spells, Chest pain Home Medications: Medications to take at Discharge Ascorbic Acid 500 mg PO DAILY 12/08/18 Calcium Carbonate [Calcium] 600 mg PO DAILY 12/08/18 Cholecalciferol (Vitamin D3) [Vitamin D3] 1,000 unit PO DAILY 12/08/18 Pantoprazole Sodium [Protonix] 40 mg PO DAILY 12/08/18 Pravastatin [Pravachol] 20 mg PO DAILY 12/08/18 Hydrochlorothiazide [Hctz] 12.5 mg PO DAILY #30 tab 12/09/18 Following Prescrptions Were Given to Patient: Hydrochlorothiazide [Hctz] 12.5 mg PO DAILY #30 tab Transmission Status: Received by [id number] Primary Care Physician: Maggie Renee MD [Primary Care Provider] - Please follow up with your Primary Care Physician in: 1 Week Disposition: Home Minutes spent on discharge:: 35 Patient Condition:: Stable Medical Necessity - Tobacco Use Smoking Status: Never smoker Tobacco Use: Non-smoker Meaningful Use Info Meaningful Use Diagnoses (Choose all that apply): None applicable <Luis Alberto Selby - Last Filed: 12/09/18 14:13> Discharge Date and Diagnosis - Secondary Discharge Diagnosis Chronic Problems Migraine (Chronic) Hypercholesterolemia (Chronic) Gastroesophageal reflux disease (Chronic) Hospital Course and Treatment Operations: None Procedures: 2-D Echocardiogram Summary of Care Provided: Patient seen and examined independently. Data reviewed. I agree with the above note by the nurse practitioner. The patient is a 72 year old F presents with left facial numbness. Patient was having a headache at the time was bitemporal. Patient presented to the emergency room and her blood pressure was in 190s. Patient underwent a work-up for stroke and no stroke was identified. It is my feeling that the paresthesias were associated with either a hypertensive urgency migraine. Regards to patient's symptoms have resolved. Patient's blood pressure has normalized since then. Recommend the patient be on low-dose of HCTZ to optimize her blood pressure overall. Patient advised to get a sphygmometer at home and check her blood pressure at home. Patient advised to be at rest for about 5 minutes before she does check her blood pressure. Also advised to keep a record that presented to her primary care physician to see if additional changes to blood pressure medications at work would be necessary. [] - Physical Exam General: Alert, Cooperative HEENT: Atraumatic, Normocephalic Oral: Moist Mucosa, No Gingival or Mucosal Lesions/ Ulcerations Neurological: Motor Exam 5/5 strength throughout, Sensory exam intact to light touch and pain Vital Signs Temp Pulse Resp BP Pulse Ox 36.7 C 91 16 162/81 H 98 12/09/18 09:04 12/09/18 09:04 12/09/18 09:04 12/09/18 09:04 12/09/18 09:04 Oxygen Flow Rate (L/min) 2 Oxygen Delivery Method Room Air Weight: 62.959 kg Body Mass Index (BMI) 26.2 Intake and Output for Last 24 Hours 12/07/18 12/08/18 12/09/18 23:59 23:59 23:59 Intake Total 566 / 566 997 / 997 Balance 566 / 566 997 / 997 Laboratory Tests Past 24 Hrs 12/08/18 12/08/18 12/08/18 10:55 10:55 10:55 ESR Sodium Potassium Chloride Carbon Dioxide Anion Gap BUN Creatinine Estim Creat Clear Calc Est GFR (MDRD) Af Amer Est GFR (MDRD) Non-Af BUN/Creatinine Ratio Glucose Hemoglobin A1c 6.7 H Calcium Magnesium Triglycerides Cholesterol LDL Cholesterol VLDL Cholesterol HDL Cholesterol Vitamin B12 1063 H TSH 3.21 12/08/18 12/08/18 12/08/18 10:55 16:14 16:14 ESR 3 Sodium Potassium Chloride Carbon Dioxide Anion Gap BUN Creatinine Estim Creat Clear Calc Est GFR (MDRD) Af Amer Est GFR (MDRD) Non-Af BUN/Creatinine Ratio Glucose Hemoglobin A1c 6.6 H Calcium Magnesium 2.0 Triglycerides Cholesterol LDL Cholesterol VLDL Cholesterol HDL Cholesterol Vitamin B12 TSH 12/09/18 05:20 ESR Sodium 146 H Potassium 4.1 Chloride 116 H Carbon Dioxide 22.0 Anion Gap 8 BUN 11 Creatinine 0.70 Estim Creat Clear Calc 39.50 Est GFR (MDRD) Af Amer 107 Est GFR (MDRD) Non-Af 88 BUN/Creatinine Ratio 15.8 Glucose 106 Hemoglobin A1c Calcium 8.3 L Magnesium Triglycerides 108 Cholesterol 168 LDL Cholesterol 95 VLDL Cholesterol 22 HDL Cholesterol 51 Vitamin B12 TSH Discharge Diet: Carb Control Diet Discharge Activity: Return to Normal Activity Call your doctor if you observe: Shortness of breath, Dizziness, Fainting spells Medical Necessity - Tobacco Use Smoking Status: Never smoker Tobacco Use: Secondhand Meaningful Use Info Meaningful Use Diagnoses (Choose all that apply): None applicable Code Visit OBSV E&M: 44516 Observation care discharge
== END 2018-12-09 10:25 | disposition home or self-care (01) ==
LOC: ED 11:11 → PCU 14:33
PROVIDERS: Physician Assistant; Psychiatry & Neurology Neurology; Admitting Provider Family Medicine; Emergency Provider Emergency Medicine; Family Provider Internal Medicine; PCP Internal Medicine
DX: R51 Headache (principal); I16.0 Hypertensive urgency; R20.2 Paresthesia of skin; I10 Essential (primary) hypertension; E11.9 Type 2 diabetes mellitus without complications; E78.5 Hyperlipidemia, unspecified; I45.10 Unspecified right bundle-branch block; K21.9 Gastro-esophageal reflux disease without esophagitis; K44.9 Diaphragmatic hernia without obstruction or gangrene; M85.80 Other specified disorders of bone density and structure, unspecified site; Z79.899 Other long term (current) drug therapy
CPT/HCPCS: 36415; 70450; 70496; 70498; 70551; 71045; 80048; 80061; 82607; 83036; 83735; 84443; 84484; 85025; 85610; 85652; 85730; 93005; 93306; 94762; 96361; 96374; 96376; 99218; 99285; J7030; Q9957; Q9967; A4216; C8929; G0378

== ENCOUNTER → 2019-12-26 07:07 | Outpatient (CLI) | payer MEDICARE, OTHER, SELFPAY ==
--- NOTE | 2019-12-26 07:16 | MRI_ITS ---
STUDY: MRI BRAIN WITHOUT CONTRAST REASON FOR EXAM: Female, 74 years old. ischemic optic neuropathy, rt eye partial vision loss, attn orbits TECHNIQUE: Standardized multiplanar fat and water weighted pulse sequences were obtained. COMPARISON: 12/08/2018 FINDINGS: There is mild cerebral atrophy with widening of the extra-axial spaces and ventricular dilatation. There are a limited number of small white matter hyperintensities, distributed throughout the deep white matter tracts of the cerebral hemispheres, consistent with mild chronic white matter ischemic changes. There is no evidence for recent intracranial ischemia or other cause of cytotoxic edema on diffusion weighted imaging (DWI). Normal T2* images of the brain without demonstrated susceptibility artifact. There is no demonstrated hemosiderin stain. Normal bilateral basal ganglia. Normal thalami. There is no extra-axial fluid accumulation. Normal flow voids within the major intracranial circulation suggesting patency by spin echo criteria. Normal sella turcica, pituitary gland, infundibular stalk, optic chiasm and hypothalamus. Normal tectal plate and pineal gland. Normal midbrain, meenakshi and medulla. Normal cerebellum. Normal basal cisterns. Normal bilateral temporal bones. Normal bilateral internal auditory canals. There are bilateral ocular lens implants with otherwise normal intraorbital contents. Normal visualized paranasal sinuses. Normal calvarium and skull base. Normal visualized soft tissue structures. Normal visualized upper cervical spine. MRI/Brain without Contrast IMPRESSION: Involutional changes of the brain, as described above. No acute infarct. Electronically Signed: Delta Sheffield MD at 9:22 EDT Tel , Service support ,
== END ==
PROVIDERS: PCP Internal Medicine; Referring Provider Ophthalmology; Visit Provider Ophthalmology
DX: H47.011 Ischemic optic neuropathy, right eye (principal)
CPT/HCPCS: 70551

== ENCOUNTER → 2020-01-27 20:14 | Outpatient (CLI) | payer MEDICARE, OTHER, SELFPAY | PROVIDERS: PCP Internal Medicine; Visit Provider Internal Medicine | DX: G47.19 Other hypersomnia (principal); H47.011 Ischemic optic neuropathy, right eye; I10 Essential (primary) hypertension; R06.83 Snoring | CPT/HCPCS: 95810 ==

== ENCOUNTER 2021-02-21 09:22 | Day surgery (SDC) | payer MEDICARE, OTHER, SELFPAY ==
--- NOTE | 2021-02-18 11:15 | HP.PCM_ITS ---
History and Physical Date of Admission: 02/21/21 HPI: The patient is a 75 year old female presenting for pre-operative visit. She is scheduled for Hysteroscopy D&C with possible polyp resection, for PMB, endocervical polyp on 02/21/21. Procedure discussed along with risks, benefits and complications. Other alternatives discussed for management. Consent form signed? Yes. ? ? PAST MEDICAL HISTORY PAST MEDICAL HISTORY Diagnosis Date ? Acute gastritis without mention of hemorrhage ? ? Adjustment disorder with depressed mood ? ? Carotid artery disease (HCC) 01/12/2012 ? Mild on left side on MRA neck done at [facility] 01/08/12 ; 20 to 39% bilateral carotid artery stenosi 2014 carotid US ? Diaphragmatic hernia without mention of obstruction or gangrene ? ? Esophageal reflux ? ? Laryngopharyngeal reflux ? Osteoporosis ? ? ? PAST SURGICAL HISTORY PAST SURGICAL HISTORY Procedure Laterality Date ? COLONOSCOP W/ OR W/O [facility] SPEC ? 09/12/05 ? Colonoscopy ? COLONOSCOP W/ OR W/O [facility] SPEC ? 08/13/15 ? Colonoscopy ? D&C, DIAG AND/OR THERAPEUTIC ? ? ? Dilation & curettage ? EGD W/O [facility] SPECIMEN W/BX ? 01/30/10 ? EGD W/O OR W/BRUSH/WASH ? 09/12/05 ? EGD ? EGD W/O OR W/BRUSH/WASH ? 08/13/15 ? EGD ? ENLARGE BREAST WITH IMPLANT ? ? ? Breast augmentation ? PAST SURGICAL HISTORY OF ? approx 1998,1999 ? CATARACTS ? UNSPECIFIED ORAL SURGERY PROCEDURE, BY REPORT ? ? ? DENTAL SURGERY ? ? ? CURRENT MEDICATIONS Current Outpatient Medications Medication Sig Dispense Refill ? pantoprazole DR (PROTONIX) 40 mg tablet Take 1 tablet by mouth twice daily before meals. As directed 180 tablet 3 ? pravastatin (PRAVACHOL) 20 mg tablet Take 1 tablet by mouth daily at bedtime. 90 tablet 3 ? 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 1 tablet 0 ? hydroCHLOROthiazide (HYDRODIURIL, ESIDRIX) 25 mg tablet Take 0.5 tablets by mouth once daily. 90 tablet 3 ? estradiol (ESTRACE) 0.01 % (0.1 mg/gram) vaginal cream 1 to 2 grams twice weekly as directed 42.5 g 3 ? meclizine (ANTIVERT) 25 mg tab Take 1 tablet by mouth every 6 hours as needed (dizziness). 30 tablet 0 ? Aspirin 81 mg Tab Take 1 tablet by mouth once daily. Take with food. ? ? ? Cholecalciferol, Vitamin D3, (VITAMIN D-3) 1,000 unit Chew Take 2,000 Units by mouth once daily. ? 0 ? Calcium-Cholecalciferol, D3, (CALCIUM 600 + D) 600-125 mg-unit ORAL Tab Take one(1) tablet twice daily. ? 0 ? No current facility-administered medications for this visit. ? ? ALLERGIES: Latex ? PERSONAL HISTORY: SOCIAL HISTORY Social History ? Tobacco Use ? Smoking status: Never Smoker ? Smokeless tobacco: Never Used Vaping Use ? Vaping Use: Never used Substance Use Topics ? Alcohol use: Yes ? ? Comment: Occasionally ? Drug use: No ? FAMILY HISTORY: FAMILY HISTORY FAMILY HISTORY Problem Relation Age of Onset ? Diabetes Sister ? ? Diabetes Brother ? ? Diabetes Paternal Grandfather ? ? Diabetes Maternal Grandfather ? ? Heart Father ? ? enlarged heart ? Hypertension Mother ? ? Cancer Mother ? ? Lung ? Stroke Brother ? ? Also had DM; 2010 from stroke ? Stroke Sister ? ? Also had DM; in 2009 from stroke ? ? REVIEW OF SYMPTOMS: GENERAL: denies fevers or chills ENDOCRINOLOGY: has not been on steroids Cardiology : denies palpitations or chest pain Respiratory: denies SOB or cough Hematology: denies history of prolonged bleeding or easy bruising or VTE Allergy: Denies history of personal or family history of allergy to anesthesia ? ? PHYSICAL EXAMINATION: ? VITALS: There were no vitals taken for this visit. ? GENERAL: The patient is well nourished, well hydrated in no acute distress. , The patient is oriented to time, place, and person. NECK: Supple. No lynphadenopathy, normal thyroid, no thyromegaly. LUNGS: Clear to auscultation bilaterally. no wheezes, rhonchi or rales HEART: Regular rate and rhythm, Normal heart sounds and No murmurs or gallops IMPRESSION: endocervical polyp, PMB, stenotic cervix ? PLAN: The risks/benefits/alternatives and personal involved for the planned Hysteroscopy D&C with possible polyp resection, were reviewed with the patient. Her questions were answered to her satisfaction and she desires to proceed. Consent was signed. I reviewed with her postop instructions and expectations. ? ? I have reviewed and updated past medical and surgical history, medications and allergies This H&P was completed in my office on 02/18/21 Assessment & Plan Assessment/Plan (1) PMB (postmenopausal bleeding): (2) Endocervical polyp: (3) Stenotic cervical os:
[2021-02-21] VITALS (7 sets, daily range): BP systolic 133–176; BP diastolic 58–88; PULSE 51–88; RESP 16–93; TEMP 36.2–37; O2SAT 93–99; BMI 24.7
[2021-02-21 09:56] LABS: Hematocrit 41.9 % (37-47); Hemoglobin 13.8 g/dL (12.0-15.0); Mean Corp Hgb Conc 32.9 g/dL (32-36); Mean Corpuscular Hgb 28.8 pg (27.0-32.0); Mean Corpuscular Volume 87.5 fL (81-99); Mean Platelet Vol. 10.2 fl (6.2-12.0); Platelet Count 249 K/mm3 (150-450); RBC Distribution Width CV 12.7 % (11.6-14.6); RBC Distribution Width SD 40.7 fl (35.1-43.9); Red Blood Count 4.79 M/mm3 (4.2-5.4); White Blood Count 5.8 K/mm3 (4.4-11.0)
[2021-02-21] MEDS: Acetaminophen 500 MG Tablet 1000 MG PO (10:00)
[2021-02-21] MEDS: Ketorolac 15 MG/ML Vial IV (10:00)
[2021-02-21] MEDS: Lactated Ringers 1,000 ML 100 ML IV (10:02)
--- NOTE | 2021-02-21 10:14 | EKG12_ITS ---
Test Reason : PRE OP Blood Pressure : / mmHG Vent. Rate : 062 BPM Atrial Rate : 062 BPM P-R Int : 150 ms QRS Dur : 084 ms QT Int : 416 ms P-R-T Axes : 052 032 013 degrees QTc Int : 422 ms Normal sinus rhythm with sinus arrhythmia Normal ECG Confirmed by LUCIO BANKS, KEILY ([id number]), editor magazine JENNIFER POLK ([id number]) on 02/22/2021 1:56:18 PM Referred By: Kimberly Garcia Confirmed By:KEILY VALDES MD
[2021-02-21 10:44] LABS: AST(SGOT) 49 U/L (15-37); Alanine Aminotransfer ALT/SGPT 66 U/L (13-56); Albumin, Serum 3.6 g/dL (3.2-5.0); Alkaline Phosphatase 161 U/L (45-117); Anion Gap 10 (5-15); BUN 16 mg/dL (7-18); BUN/Creat Ratio 17.7 RATIO (10-20); Calcium,Total 9.6 mg/dL (8.5-10.1); Chloride 105 mmol/L (98-107); EST Glomerular Filtration Rate 65 mL/min (>60); Est Glom Filt Rate - Afr Amer 78 mL/min (>60); Estimated Creatinine Clearance 42.01 ml/min; Globulin 3.6 g/dL (2.2-4.2); Glucose 135 mg/dL (74-106); Potassium 3.7 mmol/L (3.5-5.1); Protein, Total 7.2 g/dL (6.4-8.2); Sodium Level 140 mmol/L (136-145)
--- NOTE | 2021-02-21 10:55 | EMB_PTH ---
PATIENT: GWENDOLYN MARQUES LOC: [facility] U#:[id number] AGE/SX: 75/F ROOM: RE02/21/[address]: Dr. Kimberly Garcia MD : [id number] BED: DIS: 02/21/2021 SPEC #: [id number] RECD: 02/21/21 13:07 STATUS: PAOLO REFranky #: [id number] JEFFRY: 02/21/21 10:[address]: Kimberly Garcia DEPT: SURGICAL PATHOLOGY RECD BY: Cherie Miller ENTERED: 02/21/21 13:26 SP TYPE: ENDOM BX/C OTHR DR: Dr. Maggie Renee MD Tissues: A - Endocervical B - Endometrium, NOS Procedures: Surgery Specimen Level IV HEADER OPERATION: Hysteroscopy, D & C PRE-OP DIAGNOSIS: Postmenopausal bleeding, endocervical polyp, stenotic cervical os TISSUE SUBMITTED: A ? Endocervical curettings, B ? Endometrial curettings MICROSCOPIC DIAGNOSIS A. Endocervix, curettings: Fragments of benign endocervix with squamous metaplasia and minimal chronic inflammation. B. Endometrium, curettings: Strips of benign superficial endocervix. Rare strips of benign superficial endometrium. AM:katia 02/22/2021 MICROSCOPIC DESCRIPTION Slides are reviewed. GROSS DESCRIPTION A - Received in fixative is one container labeled with the patient's name and designated endocervical curettings. The specimen consists of multiple fragments of lamar-pink mucoid tissue that in aggregate measure 2 x 1 x 0.2 cm. The specimen is totally submitted in one cassette. B - Received in fixative is one container labeled with the patient's name and designated endometrial curettings. The specimen consists of multiple fragments of lamar-pink mucoid tissue that in aggregate measure 2 x 1 x 0.1 cm. The specimen is totally submitted in one cassette. / LUCAS:katia 02/21/21 TC:5 CPT: 27505 x2
--- NOTE | 2021-02-21 10:58 | PCM.DC ---
Discharge Instructions Diet Discharge Diet: No restrictions Activity May resume sexual activity in: 2 weeks Lifting Restrictions: none Dressing / Incision Call your doctor if your incision/area has: Sudden Increased Bleeding and Foul Smelling Discharge Call your doctor if you observe: Fever of 101 or Higher and Using more than 1 pad per hour (for 2 hrs in a row) Follow Up Care Please Follow Up With: Kimberly Garcia MD When: 2-4 weeks or as needed. Call [phone] to make an appointment or with any concerns. Test Results: Test results from this visit will be discussed in further detail at your follow-up appointment, if applicable. Discharge Plan Admission Primary Reason for Your Visit: Dilation and curettage Attending Provider: Kimberly Garcia Primary Care Provider: Maggie Renee Discharge Orders/Prescriptions Prescriptions: No Action calcium carbonate 600 MG tablet 600 mg PO DAILY RF: 0 pantoprazole 40 MG tablet 40 mg PO DAILY RF: 0 pravastatin 20 MG tablet 20 mg PO DAILY RF: 0 ascorbic acid (vitamin C) 500 MG tablet 500 mg PO DAILY RF: 0 cholecalciferol (vitamin D3) 1,000 UNIT capsule 1,000 unit PO DAILY RF: 0 hydrochlorothiazide 25 MG tablet 12.5 mg PO DAILY Qty: 30 RF: 0 estradiol 0.01 % (0.1 mg/gram) Cream 1 g VAGINAL TUFR RF: 0 Referrals / Follow Up: Mgagie Renee MD [Primary Care Provider] - Disposition Disposition (needs filled in before D/C Order can be placed): Home, Self Care
[2021-02-21] MEDS: Vasopressin 20 UNITS/ML Vial (11:07)
--- NOTE | 2021-02-21 11:36 | OP.PCM_ITS ---
Problems Associated Problem List Diagnoses (1) Endocervical polyp: (2) Stenotic cervical os: Report of Operation Date of Procedure: 02/21/21 Pre-Operative Diagnosis: PMB, endocervical polyp Post-Operative Diagnosis: same Surgery/Procedure Performed:: Hysteroscopy D&C Description of Surgical Findings:: Very stenotic, flush cervix. Atrophic endometrium. Normal-appearing endocervical and endometrial cavity. Both tubal ostia identified. Normal-appearing vagina and vulva Surgeon: Kimberly Garcia chief lock operator: None Type of Anesthesia: MAC/Supplemental/Local Anesthesiologist: Radha Jean Special Medications: none Specimen's removed: endometrial curettings and endocervical curettings Drains: none Estimated Blood Loss (mL): minimal Fluids Replaced: 800 Description of Procedure: The patient was taken to the OR where she was prepped and draped in dorsal lithotomy position. The weighted speculum was placed in the vagina and the anterior lip of the cervix was grasped with a single-tooth tenaculum. A paracervical block was administered with 10 cc of dilute vasopressin solution. This would be equivalent to approximately 5 units of vasopressin injected. The cervix was very stenotic. The vasopressin solution was given fives minutes to work. The cervix was very flush. I actually had to use an tenaculum on the anterior and posterior lips of the cervix in order to be able to stabilize it and dilate the ectocervix. I then did a curettage of the endocervical canal. I placed the hysteroscope and I was unable to identify the endometrial cavity. After several more minutes I was able to start dilating the cervix. It was dilated gingerly and I was finally able to place the hysteroscope. Bilateral tubal ostia were identified. The hysteroscope was removed. A gentle sharp curettage was done of the uterine cavity. The instruments were removed from the vagina. The specimen was handed off and sent to pathology. All sponge and needle counts were correct. Vaginal sweep was performed by me. The patient was awakened and taken to the recovery room in stable condition. Hysteroscopic ins: 350cc normal saline Hysteroscopic outs:200cc F Grafts/Implants Used: none Procedure Start Time: 11:07 Procedure Stop Time: 11:28 Complications none Admit VTE Documentation VTE Present on Admission: No VTE Mechan Device Prophylaxis: SCD's VTE Pharm Prophylaxis ordered?: No Reason prophylaxis not ordered:: Procedure Not Indicated
== END 2021-02-21 13:41 | disposition home or self-care (01) ==
LOC: SDC 09:25 → AC 09:27
PROVIDERS: PCP Internal Medicine; Referring Provider Obstetrics & Gynecology; Visit Provider Obstetrics & Gynecology
PROC: 0UB98ZZ Excision of Uterus, Via Natural or Artificial Opening Endoscopic (ICD-10-PCS; CPT 58558; principal; 2021-02-21 10:40)
DX: N95.0 Postmenopausal bleeding (principal); N88.2 Stricture and stenosis of cervix uteri; N84.1 Polyp of cervix uteri; N87.0 Mild cervical dysplasia; I10 Essential (primary) hypertension; M81.0 Age-related osteoporosis without current pathological fracture; K21.9 Gastro-esophageal reflux disease without esophagitis; Z79.82 Long term (current) use of aspirin; Z79.899 Other long term (current) drug therapy
CPT/HCPCS: 58558; 80053; 85027; 88305; 93005; J7120; J2405